=== PATIENT | female | born 1970 | race Caucasian/White ===

== ENCOUNTER 2017-04-11 13:04 | Inpatient (IN) | payer MEDICAID, OTHER ==
[~2017-04-11] VITALS: Ht 154.9 cm; Wt 97.1 kg
[~2017-04-11 13:04] MED LIST: DEXAMETHASONE SOD PHOS 4 MG/ML VIAL IVP ONE; FentaNYL CITRATE-PF 100 MCG/2 ML VIAL IVP ONE; GLYCOPYRROLATE 0.2 MG/ML VIAL IM ONE; KETOROLAC TROMETHAMINE 60 MG/2 ML VIAL IM ONE; LIDOCAINE HCL/PF 2% 5 ML VIAL INJ ONE; METOCLOPRAMIDE HCL 5 MG/ML 2 ML VIAL IVP ONE; MIDAZOLAM HCL 2 MG/2 ML VIAL IVP ONE; NEOSTIGMINE METHYLSULFATE 1 MG/ML 10 ML VIAL IVP ONE; NOCURR; ONDANSETRON HCL 4 MG/2 ML VIAL IVP ONE; PROPOFOL 1% 20 ML VIAL IVP ONE; ROCURONIUM BROMIDE 10 MG/ML 5 ML VIAL IVP ONE; SUCCINYLCHOLINE CHLORIDE 20 MG/ML 10 ML VIAL IVP ONE
[2017-04-11 14:46] LABS: BASOPHILS # (AUTO) 0.14 K/uL (0.00-0.20); BASOPHILS % (AUTO) 0.6 % (0.0-2.0); EOSINOPHILS # (AUTO) 0.03 K/uL (0.00-0.70); HEMATOCRIT 52.5 % (36-46); HEMOGLOBIN 17.4 g/dL (12.0-16.0); LYMPHOCYTES # (AUTO) 2.3 K/uL (1.0-4.8); LYMPHOCYTES % (AUTO) 8.7 % (22.0-44.0); MEAN CORPUSCULAR HEMOGLOBIN 28.3 pg (26.0-34.0); MEAN CORPUSCULAR HGB CONC 33.1 G/dL (31.0-37.0); MEAN CORPUSCULAR VOLUME 86 fL (80-100); MONOCYTES % (AUTO) 3.9 % (2.0-9.0); NEUTROPHILS # (AUTO) 22.7 K/uL (1.8-7.7); PLATELET COUNT (AUTO) 338 K/uL (150-450); RED BLOOD CELL COUNT(AUTO) 6.13 MIL/uL (4.00-5.20); RED CELL DISTRIBUTION WIDTH 14.1 % (11.5-14.5); WHITE BLOOD COUNT (AUTO) 26.2 K/uL (4.5-11.0)
[2017-04-11 14:48] LABS: NEUTROPHILS % (AUTO) 86.7 % (40.0-70.0)
[2017-04-11 15:04] LABS: CALCIUM, TOTAL 11.3 mg/dL (8.8-10.5); CREATININE 1.13 mg/dL (0.60-1.30); POTASSIUM 3.5 mmol/L (3.5-5.1)
[2017-04-11 15:09] LABS: ALBUMIN 3.8 g/dL (3.4-5.0); BILIRUBIN,TOTAL 0.6 mg/dL (0.1-1.0); TOTAL PROTEIN, SERUM 8.8 g/dL (6.4-8.2)
[2017-04-11] MEDS ORDERED: BARIUM SULFATE 0.1% SUSPENSION 450 ML BOTTLE PO ONE (15:30)
[2017-04-11] MEDS ORDERED: SODIUM CHLORIDE 0.9% 1,000 ML IV ONE ×2 (15:30→19:40)
[2017-04-11] MEDS ORDERED: HYDROmorphone 2 MG/ML SYRINGE IVP ONE (15:30)
[2017-04-11] MEDS ORDERED: ONDANSETRON HCL 4 MG/2 ML VIAL IVP ONE (15:30)
[2017-04-11] MEDS ORDERED: PIPERACILLIN/TAZO 3.375 GM/D5W 50 ML IV ONE (15:45)
[2017-04-11] MEDS ORDERED: IOVERSOL 320 MG/ML 50 ML VIAL ONE (16:35)
[2017-04-11] MEDS ORDERED: IOVERSOL 320 MG/ML 100 ML VIAL ONE (16:36)
[2017-04-11] MEDS ORDERED: SODIUM CHLORIDE 0.9% 100 ML ONE (16:36)
[2017-04-11] MEDS ORDERED: MetroNIDAZOLE 500 MG/NACL 100 ML IV ONE (17:30)
[2017-04-11] MEDS ORDERED: ACETAMINOPHEN 325 MG TABLET PO PRN ×2 (18:15→23:15)
[2017-04-11] MEDS ORDERED: ONDANSETRON HCL 4 MG/2 ML VIAL IVP PRN (18:15)
[2017-04-11] MEDS ORDERED: 0.9% SODIUM CHLORIDE 10 ML SYRINGE IVP PRN (18:15)
[2017-04-11] MEDS ORDERED: MORPHINE SULFATE 2 MG/ML SYRINGE IVP PRN (18:15)
[2017-04-11] MEDS ORDERED: IOHEXOL 240 MG/ML 20 ML VIAL ONE (19:39)
[2017-04-11] MEDS ORDERED: GUM MASTIC/STORAX/MSAL/ALCOHOL LIQUID 0.67 ML VIAL TP ONE (19:39)
[2017-04-11] MEDS ORDERED: RINGERS SOLUTION,LACTATED 1,000 ML IV ONE ×2 (20:09→21:00)
[2017-04-11] MEDS: BUPIVACAINE HCL/PF 0.5% 30 ML VIAL ONE ×2 (20:15→20:28)
[2017-04-11] MEDS: LIDOCAINE HCL 2%/EPI 1:200,000/PF 10 ML VIAL ONE ×2 (20:15→20:28)
[2017-04-11] MEDS ORDERED: FentaNYL CITRATE-PF 100 MCG/2 ML VIAL IVP PRN (20:30)
[2017-04-11] MEDS ORDERED: MEPERIDINE-PF 25 MG/ML SYRINGE IVP PRN (20:30)
[2017-04-11] MEDS ORDERED: HYDROmorphone 2 MG/ML SYRINGE IVP PRN (20:30)
[2017-04-11] MEDS ORDERED: IBUPROFEN 600 MG TABLET PO PRN (21:15)
[2017-04-11] MEDS ORDERED: ACETAMINOPHEN 500 MG TABLET PO PRN (21:15)
[2017-04-11] MEDS ORDERED: HYDROCODONE/ACETAMINOPHEN 5-325 MG TABLET PO PRN ×2 (21:15→23:15)
[2017-04-11] MEDS ORDERED: MORPHINE SULFATE 4 MG/ML SYRINGE IVP PRN (21:15)
[2017-04-11 23:01] VITALS: BP 111/56
[2017-04-11] MEDS ORDERED: ZOLPIDEM TARTRATE 5 MG TABLET PO PRN (23:15)
[2017-04-12] MEDS: PIPERACILLIN/TAZO 3.375 GM/D5W 50 ML IV SCH ×5 (00:15→22:30)
[2017-04-12] MEDS: POTASSIUM CHLORIDE 40 MEQ in SODIUM CHLORIDE 0.9% 1,000 ML IV SCH ×2 (00:15→16:10)
[2017-04-12 00:45] LABS: ALBUMIN 3.1 g/dL (3.4-5.0); BILIRUBIN,TOTAL 0.5 mg/dL (0.1-1.0); CALCIUM, TOTAL 9.3 mg/dL (8.8-10.5); CREATININE 1.13 mg/dL (0.60-1.30); POTASSIUM 4.5 mmol/L (3.5-5.1); TOTAL PROTEIN, SERUM 7.2 g/dL (6.4-8.2)
[2017-04-12 04:48] VITALS: BP 105/62
[2017-04-12 07:15] VITALS: BP 126/78
[2017-04-12] MEDS ORDERED: OXYGEN THERAPY IH SCH (08:00)
[2017-04-12 08:19] LABS: EOSINOPHILS % (AUTO) 0.1 % (1.0-6.0); HEMATOCRIT 41.9 % (36-46); HEMOGLOBIN 14.1 g/dL (12.0-16.0); LYMPHOCYTES # (AUTO) 1.6 K/uL (1.0-4.8); LYMPHOCYTES % (AUTO) 8.1 % (22.0-44.0); MEAN CORPUSCULAR HEMOGLOBIN 28.8 pg (26.0-34.0); MEAN CORPUSCULAR HGB CONC 33.5 G/dL (31.0-37.0); MEAN CORPUSCULAR VOLUME 86 fL (80-100); MONOCYTES % (AUTO) 5.5 % (2.0-9.0); NEUTROPHILS # (AUTO) 16.5 K/uL (1.8-7.7); PLATELET COUNT (AUTO) 339 K/uL (150-450); RED BLOOD CELL COUNT(AUTO) 4.88 MIL/uL (4.00-5.20); RED CELL DISTRIBUTION WIDTH 13.6 % (11.5-14.5); WHITE BLOOD COUNT (AUTO) 19.2 K/uL (4.5-11.0)
[2017-04-12 08:28] LABS: NEUTROPHILS % (AUTO) 86.3 % (40.0-70.0)
[2017-04-12] MEDS: NICOTINE 7 MG/24 HOUR PATCH TD SCH (08:31)
[2017-04-12] MEDS: LANSOPRAZOLE 30 MG SOLUBLE TABLET PO SCH (08:31)
[2017-04-12 08:35] LABS: BILIRUBIN,TOTAL 0.6 mg/dL (0.1-1.0); CALCIUM, TOTAL 8.5 mg/dL (8.8-10.5); CREATININE 0.99 mg/dL (0.60-1.30); POTASSIUM 3.9 mmol/L (3.5-5.1); TOTAL PROTEIN, SERUM 7.1 g/dL (6.4-8.2)
[2017-04-12 11:17] VITALS: BP 135/72
[2017-04-12 15:55] VITALS: BP 116/62
[2017-04-12 19:49] VITALS: BP 124/69
[2017-04-12] MEDS: OxyCODONE HCL/ACETAMINOPHEN 5-325 MG TABLET PO PRN (22:34)
[2017-04-12 23:30] VITALS: BP 122/52
[2017-04-13 03:30] VITALS: BP 110/61
[2017-04-13] MEDS: PIPERACILLIN/TAZO 3.375 GM/D5W 50 ML IV SCH ×2 (05:06→12:11)
[2017-04-13 07:58] VITALS: BP 119/58
[2017-04-13] MEDS: LANSOPRAZOLE 30 MG SOLUBLE TABLET PO SCH (08:23)
[2017-04-13] MEDS: NICOTINE 7 MG/24 HOUR PATCH TD SCH (08:23)
[2017-04-13] MEDS: OxyCODONE HCL/ACETAMINOPHEN 5-325 MG TABLET PO PRN (08:23)
[2017-04-13 11:21] VITALS: BP 92/59
[2017-04-13 11:40] LABS: BASOPHILS % (AUTO) 0.4 % (0.0-2.0); EOSINOPHILS % (AUTO) 0.8 % (1.0-6.0); HEMATOCRIT 34.8 % (36-46); HEMOGLOBIN 11.7 g/dL (12.0-16.0); LYMPHOCYTES # (AUTO) 3.8 K/uL (1.0-4.8); LYMPHOCYTES % (AUTO) 29.3 % (22.0-44.0); MEAN CORPUSCULAR HEMOGLOBIN 28.9 pg (26.0-34.0); MEAN CORPUSCULAR HGB CONC 33.7 G/dL (31.0-37.0); MEAN CORPUSCULAR VOLUME 86 fL (80-100); MONOCYTES % (AUTO) 7.6 % (2.0-9.0); NEUTROPHILS % (AUTO) 61.9 % (40.0-70.0); PLATELET COUNT (AUTO) 278 K/uL (150-450); RED BLOOD CELL COUNT(AUTO) 4.06 MIL/uL (4.00-5.20); RED CELL DISTRIBUTION WIDTH 13.9 % (11.5-14.5); WHITE BLOOD COUNT (AUTO) 12.9 K/uL (4.5-11.0)
[2017-04-13] MEDS ORDERED: CIPR-278 PO (14:28)
[2017-04-13] MEDS ORDERED: METR500 PO (14:39)
[2017-04-13] MEDS ORDERED: TRAM50TA4 PO (14:39)
[2017-04-13 15:27] VITALS: BP 151/90
== END 2017-04-13 15:30 | disposition home or self-care (01) | DRG 710 ==
LOC: EMS 13:05 → 6N 18:22
PROVIDERS: ADMIT Internal Medicine; ATTEND Internal Medicine
PROC: 0FT44ZZ Resection of Gallbladder, Percutaneous Endoscopic Approach (ICD-10-PCS; principal; 2017-04-11 20:15)
DX: A41.9 Sepsis, unspecified organism (principal); N17.9 Acute kidney failure, unspecified; E83.52 Hypercalcemia; K80.00 Calculus of gallbladder with acute cholecystitis without obstruction; N80.0 Endometriosis of uterus; E86.0 Dehydration; I10 Essential (primary) hypertension; F17.210 Nicotine dependence, cigarettes, uncomplicated; Z53.29 Procedure and treatment not carried out because of patient's decision for other reasons; Z82.49 Family history of ischemic heart disease and other diseases of the circulatory system; Z79.899 Other long term (current) drug therapy
CPT/HCPCS: 74177; 76700; 87040; 87081; 88304; 96365; 96366; 96368; 96375; 99285; G0238; J0330; J1100; J1170; J1885; J2250; J2405; J2543; J2704; J2765; J3010; J3480; J3490; J7030; J7050; J7120; Q9966